=== PATIENT | female | born 1935 | race Caucasian/White ===

== ENCOUNTER → 2017-09-19 | Outpatient (CLI) | payer MEDICARE, BC ==
[2017-09-19 13:57] LABS: BACTERIA, URINE RARE /hpf; BILIRUBIN, URINE NEG (NEG); BLOOD, URINE NEG (NEG); GLUCOSE,URINE NEG (NEG); KETONE, URINE NEG (NEG); NITRITE,URINE NEG (NEG); SQUAMOUS EPITHELIAL CELL URINE <1 /hpf (0-5); URINE COLOR LIGHT-YELLOW (YELLW/STRAW); URINE LEUKOCYTE ESTERASE TRACE (NEG)
[2017-09-19 13:57] LABS: AUTOMATED NEUTROPHIL # 4.6 TH/MM3 (1.8-7.7); BASOPHIL % 0.5 % (0.0-2.0); EOSINOPHIL # 0.2 TH/MM3 (0-0.4); EOSINOPHIL % 2.7 % (0.0-4.0); HEMATOCRIT 36.1 % (35.0-46.0); HEMOGLOBIN 12.1 GM/DL (11.6-15.3); LYMPH % 28.4 % (9.0-44.0); LYMPHOCYTE # 2.1 TH/MM3 (1.0-4.8); MEAN CELL VOLUME 87.4 FL (80.0-100.0); MEAN CORPUSCULAR HEMOGLOBIN 29.2 PG (27.0-34.0); MEAN CORPUSCULAR HGB CONC 33.5 % (32.0-36.0); MEAN PLATELET VOLUME 8.1 FL (7.0-11.0); MONO % 7.3 % (0.0-8.0); MONOCYTE # 0.5 TH/MM3 (0-0.9); NEUT % 61.1 % (16.0-70.0); PLATELET COUNT 229 TH/MM3 (150-450); RED BLOOD COUNT 4.14 MIL/MM3 (4.00-5.30); RED CELL DISTRIBUTION WIDTH 13.8 % (11.6-17.2); WHITE BLOOD COUNT 7.5 TH/MM3 (4.0-11.0)
--- NOTE | 2017-09-19 15:14 | RADRPT ---
EXAM DATE/TIME: 09/19/2017 14:27 [place] COMPARISON: No previous studies available for comparison. INDICATIONS : Evaluate for pneumonia, pneumothorax, or communicable disease. Pre op hysterectomy. MEDICAL HISTORY : None. SURGICAL HISTORY : None. ENCOUNTER: Initial ACUITY: 1 day PAIN SCORE: 0/10 LOCATION: Bilateral chest FINDINGS: The heart is normal. The pulmonary vascular pattern is normal. Mild increased interstitial markings a re noted and are nonspecific. Degenerative changes and scoliosis of the thoracic spine are noted. CONCLUSION: 1. Mild increased interstitial markings are nonspecific and could represent acute or chronic intersti tial disease. Clinical correlation is recommended. 2. Degenerative changes and scoliosis of the thoracic spine Gary Jean MD on September 19, 2017 at 15:10 Board Certified Radiologist. This report was verified electronically.
--- NOTE | 2017-09-20 13:19 | EKG ---
Date Performed: 09/19/2017 Time Performed: 13:56:51 PTAGE: 82 years EKG: Sinus rhythm LEFT ATRIAL ENLARGEMENT RIGHT BUNDLE BRANCH BLOCK Compared to previous tracing Right bundle branch b lock is new ABNORMAL ECG PREVIOUS TRACING : 01/14/98 DOCTOR: Kushal Murray Interpretating Date/Time 09/20/2017 13:17:44
== END ==
LOC: CPRE 13:19
PROVIDERS: ATTEND Obstetrics & Gynecology
DX: Z01.810 Encounter for preprocedural cardiovascular examination (principal); Z01.812 Encounter for preprocedural laboratory examination; N95.0 Postmenopausal bleeding; R94.31 Abnormal electrocardiogram [ECG] [EKG]
CPT/HCPCS: 36415; 71046; 81001; 85025; 93005

== ENCOUNTER → 2017-09-23 | Day surgery (SDC) | payer MEDICARE, BC ==
--- NOTE | 2017-09-19 13:01 | MH ---
cc: Driss Hampton MD DATE OF ADMISSION: 09/23/2017 DATE OF ADMISSION: 09/23/2017 ADMITTING DIAGNOSIS: Postmenopausal bleeding with uterine fibroids, HISTORY OF PRESENT ILLNESS: This is an 82-year-old single white female, para 7-0-0-7, awoke from sleep on 07/25/2017 with painless bright red blood per vagina and went to the ER at [facility]. Ultrasound showed a uterus that measured 4.5 cm with an anterior fibroid. The ovaries could not be seen. Endometrium was 5 mm. She is now admitted for surgical evaluation. PAST SURGICAL HISTORY: In 2010, right hip replacement. She had cataracts at age 54 and 62. MEDICATIONS: Advil and vitamins. ALLERGIES: NONE. TRANSFUSIONS: Transfusion x 1 with 1 . OBSTETRICAL HISTORY: 7 vaginal deliveries. SOCIAL HISTORY: She is single. Works 2 days a week. . Alcohol: Occasional. Tobacco: None. Drugs: None. FAMILY HISTORY: Noncontributory. PHYSICAL EXAMINATION: GENERAL: She is a well-nourished, well-developed white female. VITAL SIGNS: Stable. HEENT: Normal. CHEST: Clear. HEART: Regular rate. BREASTS: Symmetrical. ABDOMEN: Benign. PELVIC: Vagina is normal, atrophy. Cervix normal. There is a rectocele and cystocele. Uterus was normal size, shape. Adnexa nonpalpable. ASSESSMENT: Postmenopausal bleeding with fibroids. PLAN: She is now admitted for outpatient hysteroscopy, D and C. While in the office, explained the procedures, the risks and benefits and complications and possible need for additional treatment pending findings. The patient elected to proceed. MD CINDY Guerra/KD , 12:42 PM , 01:00 PM
[~2017-09-23] VITALS: Ht 165.1 cm; Wt 80.8 kg
[~2017-09-23] MED LIST: ACETAMINOPHEN 1000 MG/100 ML 100 ML IV ONE; CHLORHEXIDINE GLUCONATE 2 % 1 PACK (2 CLOTHS) TOPICAL PRN; DEXAMETHASONE SOD PHOS 4 MG/ML VIAL IV ONE; DO NOT ADM ANY ANTICOAGULANT DRUGS PRN; KETOROLAC TROMETHAMINE 30 MG/ML (IVP) VIAL IV PUSH ONE; LACTATED RINGER'S 1000 ML IV PRN; LIDOCAINE HCL 1% PF 5 ML SYRINGE OTHER ONE; METOCLOPRAMIDE HCL 10 MG/2 ML VIAL IV ONE; METOPROLOL TARTRATE 25 MG TAB PO PRN; ONDANSETRON HCL 4 MG/2 ML VIAL IV ONE; POVIDONE IODINE 5% (ANTISEPSIS KIT) 4 APPLICATIONS EACH NARE PRN; PROPOFOL 200 MG/20 ML AMP IV ONE; SODIUM CHLORID 0.9% 500 ML IV PRN; ceFAZolin 1,000 MG/NS 100 ML IV SCH; ceFAZolin 2 GM/DEX PREMIX 50 ML IV SCH
--- NOTE | 2017-09-23 08:27 | MP ---
cc: Driss Hampton MD DATE OF OPERATION: 09/23/2017 PREOPERATIVE DIAGNOSIS: Postmenopausal bleeding with uterine fibroids. POSTOPERATIVE DIAGNOSIS: Postmenopausal bleeding with uterine fibroids. PROCEDURE PERFORMED: Hysteroscopy, D and C. ANESTHESIA: General LMA. ESTIMATED BLOOD LOSS: For the procedure is less than 5 mL. FLUIDS: 500 mL crystalloid. OBJECTIVE FINDINGS: Following induction of adequate general LMA anesthesia, the patient was prepped and draped supine on the operating table in the dorsal lithotomy position in the usual sterile fashion with the bladder being drained via in and out catheterization. Exam under anesthesia revealed a normal-sized uterus with second degree prolapse, cystocele and rectocele. Heavy weighted speculum was placed in the posterior fornix of the vagina. The anterior lip of the cervix was grasped with a single toothed tenaculum. The cervix and uterus sounded to 7 cm. The cervix dilated with an 18 Hanks dilator. Hysteroscope was passed revealing a very normal endocervix with a very atrophic endometrium. The endocervix was then curetted with a small serrated curette, endometrium, a small serrated curette and polyp forceps were passed to picking supervisor loose tissue and debris. All instruments removed. All counts were correct. The patient's legs taken out of the stirrups. She was awakened and taken to the recovery room in good condition. MD CINDY Guerra/DL , 07:57 AM , 08:26 AM
[2017-09-23 09:30] VITALS: BP 151/75; PULSE 75; RESP 16; TEMP 97.3; O2SAT 96
== END | disposition home or self-care (01) ==
LOC: HSDC 05:35
PROVIDERS: ATTEND Obstetrics & Gynecology
DX: D25.9 Leiomyoma of uterus, unspecified (principal); N95.0 Postmenopausal bleeding; Z96.641 Presence of right artificial hip joint
CPT/HCPCS: 00952; 58558; 88305; J0131; J0690; J1100; J1885; J2405; J3010; J7120